=== PATIENT | female | born 1960 | race Caucasian/White ===

== ENCOUNTER 2016-03-25 11:05 | Emergency (ER) | payer OTHER ==
--- NOTE | 2016-03-25 11:51 | REP ---
CT Head without contrast HISTORY: Head injury COMPARISON: None There is no intraparenchymal hemorrhage, acute infarct, mass or midline shift. The ventricular system is normal in appearance. There is no extra cerebral collection. There is no fracture. The visualized sinuses are clear. Soft tissue swelling is present overlying the right parietal bone. IMPRESSION: There is no intracranial lesion. Signed by Leo Gordon MD 03/25/2016 11:43 A
--- NOTE | 2016-03-25 12:13 | REP ---
CT CERVICAL SPINE WITHOUT CONTRAST: HISTORY: Trauma. There is no acute fracture or subluxation. A disc bulge is present at the C3-4 level. Disc bulges with associated osteophyte formation are present at the C5-6 through C6-7 levels. There is minimal narrowing of the spinal canal. Uncinate process and/or facet hypertrophy are present at the C4-5 through C6-7 levels. These findings produce minimal to mild narrowing of the neural foramina. The C4-5 through C6-7 intervertebral discs are decreased in height consistent with disc degeneration. Anterior osteophytes are present at the C1-2 and C6-7 levels. IMPRESSION: 1. There is no acute fracture or subluxation. 2. There is cervical spondylosis at the C1-2 and C3-4 through C6-7 levels. Signed by Leo Gordon MD 03/25/2016 12:14 P
--- NOTE | 2016-03-25 12:40 | EDDOCDS ---
Physician Documentation [facility] Name: Toya Sheridan Age: 56 yrs Sex: Female : 1960 Arrival Date: 03/25/2016 Time: 11:05 Bed 4 Private MD: Angel Hernadez Disposition: 03/25 12:07 Critical Care: Critical care not applicable. pc Disposition: 03/25/16 12:12 Discharged to Home/Self Care. Impression: Strain of muscle, fascia and tendon at neck level - bilateral trapezius muscles. - Condition is Stable. - Discharge Instructions: Soft Tissue Injury of the Neck. - Prescriptions for Skelaxin 800 mg Oral Tablet - take 1 tablet by ORAL route every 6 hours As needed; 40 tablet. - Medication Reconciliation, Local Pharmacy Hours form. - Follow up: Angel Hernadez; When: As previously arranged; Reason: Recheck today's complaints, Continuance of care. - Problem is new. - Symptoms are unchanged. HPI: 12:07 This 56 yrs old Female presents to ER via Walkin/Carried/Asstd with pc complaints of Head Injury. 12:07 The history is obtained from the patient. She slipped on the ice yesterday and struck pc the back of her head. She denies any LOC. Her only complaint is that her "neck muscles hurt" today. She denies any focal neuro deficits. The patient has not experienced similar symptoms in the past. The patient has been recently seen by their primary care provider, for a routine, regularly scheduled appointment. Historical: - Allergies: no known allergies; - Home Meds: 1. Eliquis 5 mg oral tab 2 times per day (Last dose: 03/25/2016 07:00) 2. carvedilol 25 mg oral tab 1 tab 2 times per day (Last dose: 03/25/2016 07:00) 3. 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 - Social history: Smoking status: Patient states was never smoker of tobacco. No barriers to communication noted, The patient speaks fluent Chinese, Speaks appropriately for age. - : The pt / caregiver states he / she is on anticoagulants: Eliquis Home medication list is obtained from the patient. - Hospitalizations: : No recent hospitalization is reported. - Exposure Risk Screening:: None identified. - Immunization history:: All immunizations up-to-date. - Family history: Not pertinent. - Social history:: the patient is a non-smoker, the patient does not drink alcohol. ROS: 12:07 All systems are negative except as listed. pc Exam: 12:07 General Appearance: no acute distress, alert. pc 12:07 EENT: normal eye inspection, ears, nose and throat normal, pharynx normal, mucous membranes moist 12:07 Neck: The exam is negative for acute abnormalities except: pain in both trapezius muscles with mild spasm. 12:07 Respiratory: no respiratory distress, normal breath sounds. 12:07 CVS: regular pulse rate, regular rhythm, normal S1 and S2, no murmurs, strong peripheral pulses. 12:07 Abdomen: soft, non-tender, no organomegaly, normal bowel sounds. 12:07 Back: normal inspection. 12:07 Skin: skin color is normal. 12:07 Extremities: The extremities have a grossly normal appearance, are non-tender, without acute ROM abnormalities. 12:07 Neuro: oriented x 3, cranial nerves normal as tested, no motor deficits, no sensory deficits, normal gait. Vital Signs: 11:07 BP 144 / 72; Pulse 53; Resp 16; Temp 97.2(O); Pulse Ox 100% ; Weight 94.35 kg / 208.01 cmb lbs; Height 5 ft. 8 in. (172.72 cm); Pain 8/10; 12:25 BP 144 / 68; Pulse 56; Resp 18; Temp 97.3(O); Pulse Ox 98% on R/A; Pain 6/10; ct3 11:07 Body Mass Index 31.63 (94.35 kg, 172.72 cm) cmb Felix Coma Score: 11:09 Eye Response: spontaneous(4). Verbal Response: oriented(5). Motor Response: obeys srm commands(6). Total: 15. MDM: 11:24 CT Head Without Contrast Ordered. EDMS 11:24 CT Spine,Cervical W/o Contrast Ordered. EDMS 12:07 Differential Diagnosis: Head injury on thinners;; cervical strain. Plan: CTs. Data pc reviewed: old medical records, vital signs, nurses notes, all radiology studies and available results. Test interpretation: interpreted by Radiologist and personally reviewed, C-Spine CT; no acute disease, Head CT; no acute disease. The patient has been re-examined and re-evaluated. There is no appreciated change of the patient's symptoms at this time. Disposition: The historical points, examination findings, and any diagnostic results supporting the provided diagnosis, were discussed with the patient or legal guardian. The need for outpatient follow up with the provider listed on their discharge instructions was discussed. They were encouraged to return to [facility], or the nearest ED, if symptoms worsen/persist, or for any other questions/concerns. 12:35 Financial registration complete. mm15 Signatures: Dispatcher [employer] Shun Ordaz MD MD pc Michelson, Staci, RN RN srm McGrath, Marlynn mm15 Clemencia Adams RN RN ja5 CHRIS
--- NOTE | 2016-03-25 12:40 | EDDOCDS ---
Nurse's Notes [facility] Name: Toya Sheridan Age: 56 yrs Sex: Female : 1960 Arrival Date: 03/25/2016 Time: 11:05 Bed 4 Private MD: Angel Hernadez Diagnosis: Strain of muscle, fascia and tendon at neck level-bilateral trapezius muscles Presentation: 03/25 11:09 Presenting complaint: Patient states: was ice fishing yesterday- fell and hit back of [facility] [place]. pt is on blood thinners. c/o neck pain that radiates around neck and into arms. no LOC at time of fall. This patient has no additional risk factors. Mechanism of Injury: resulted from a fall. Adult Sepsis Screening: The patient does not have new or worsening altered mentation. Patient's respiratory rate is less than 22. Systolic blood pressure is greater than 100. Patient has a qSOFA score of 0- Negative Sepsis Screen. Suicide/Homicide risk assessment- the patient denies having any suicidal and/or homicidal ideations and does not present with any other emotional, behavioral or mental health complaints. Status: Patient is not a canine service teacher or dependent. Transition of care: patient was not received from another setting of care. 11:09 Acuity: MONICA Level 2 [facility] [place] 11:09 Method Of Arrival: Walkin/Carried/Asstd [facility] [place] T[place] Assessment: 11:14 General: Appears in no apparent distress, Behavior is appropriate for age, cooperative. srm Pain: Pain currently is 8 out of 10 on a pain scale. 11:15 Neurological: Level of Consciousness is awake, alert, Oriented to person, place, time, srm Machine Tool Builder are equal bilaterally Moves all extremities. Full function Gait is steady, Speech is normal, Facial symmetry appears normal, Reports neck pain. 12:39 Pt Declines HIV testing. ja5 Historical: - Allergies: no known allergies; - Home Meds: 1. Eliquis 5 mg oral tab 2 times per day (Last dose: 03/25/2016 07:00) 2. carvedilol 25 mg oral tab 1 tab 2 times per day (Last dose: 03/25/2016 07:00) 3. 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 - Social history: Smoking status: Patient states was never smoker of tobacco. No barriers to communication noted, The patient speaks fluent Afghan, Speaks appropriately for age. - : The pt / caregiver states he / she is on anticoagulants: Eliqu Home medication list is obtained from the patient. - Hospitalizations: : No recent hospitalization is reported. - Exposure Risk Screening:: None identified. - Immunization history:: All immunizations up-to-date. - Family history: Not pertinent. - Social history:: the patient is a non-smoker, the patient does not drink alcohol. Screenin:33 Screening information is obtained from the patient. Fall risk: No risks identified. ja5 Assistance ADL's: requires no assistance with activities of daily living. Abuse/DV Screen: The patient / caregiver reports he/she is: not in a situation that causes fear, pain or injury. Nutritional screening: No deficits noted. On no prescribed diet. Advance Directives: Currently, there is no health care proxy. There is no active DNR order. There is no living will. Advance Directives: There is no Power of Polytechnic Registrar. home support is adequate. Assessment: 11:20 General: Appears in no apparent distress, Behavior is appropriate for age, cooperative. ja5 Pain: Location: scalp, left trapezius, right trapezius, left scapular area and right scapular area Pain currently is 7 out of 10 on a pain scale. Pain began pain began at 04:30 03/25/16 after patient fell while ice fishing at 07:30 03/24/16. Aggravated by increased activity. Neurological: No deficits noted. Level of Consciousness is awake, alert, Oriented to person, place, time, Machine Tool Builder are equal bilaterally Moves all extremities. Gait is steady, Speech is normal, Facial symmetry appears normal, Pupils are PERRLA. Cardiovascular: Heart tones S1 S2. Respiratory: Airway is patent Breath sounds are clear. Derm: Skin is dry, Skin is pink, warm & dry. swelling to the back of head from impact. 12:34 General: C collar removed by physician. Patient reports that pain in unchanged since ja5 time of arrival. Patient a&o x3, skin is warm, dry and pink. Respirations easy and full, no distress noted at this time.. Vital Signs: 11:07 BP 144 / 72; Pulse 53; Resp 16; Temp 97.2(O); Pulse Ox 100% ; Weight 94.35 kg; Height 5 cmb ft. 8 in. (172.72 cm); Pain 8/10; 12:25 BP 144 / 68; Pulse 56; Resp 18; Temp 97.3(O); Pulse Ox 98% on R/A; Pain 6/10; ct3 11:07 Body Mass Index 31.63 (94.35 kg, 172.72 cm) cmb Vitals: 11:07 Log In Time: March 25, 2016 at 11:05. cmb Marana Coma Score: 11:09 Eye Response: spontaneous(4). Verbal Response: oriented(5). Motor Response: obeys srm commands(6). Total: 15. ED Course: 11:06 Patient visited by Ness Mccray. cmb 11:06 Angel Hernadez is Private Physician. cmb 11:06 Patient moved to Waiting cmb 11:08 RN notified that patient meets Red Flag criteria. cmb 11:09 Phoebe Mcmanus, RN is Primary Nurse. srm 11:09 Patient moved to 4 srm 11:10 The patient / caregiver is instructed regarding the plan of care and ED course. ja5 11:11 Triage Initiated srm 11:12 Shun Salas MD is Attending Physician. pc 11:15 Patient visited by Loretta Garcia, CESAR. srm 11:15 C-collar applied. jc4 11:23 Patient visited by Shun Salas MD. pc 11:[address] ja5 11:36 Patient moved to 4 jc4 12:12 Angel Hernadez is Referral Physician. pc 12:25 Patient visited by Tequila Sánchez PCA. ct3 12:30 CT Head Without Contrast Returned. EDMS 12:30 CT Spine,Cervical W/o Contrast Returned. EDMS 12:38 No IV's were initiated during this patient's visit. No procedures done that require ja5 assistance. Order Results: Radiology Order: CT Head Without Contrast Test: CT Head Without Contrast REASON FOR EXAMINATION: HI on thinners; CT Head without contrast; ; HISTORY: Head injury; ; COMPARISON: None; ; There is no intraparenchymal hemorrhage, acute infarct, mass or midline shift.; The ventricular system is normal in appearance. There is no extra cerebral; collection. There is no fracture. The visualized sinuses are clear. Soft tissue; swelling is present overlying the right parietal bone.; ; IMPRESSION: There is no intracranial lesion.; ; ; ; ; Signed by; Leo Gordon MD 03/25/2016 11:43 A; Radiology Order: CT Spine,Cervical W/o Contrast Test: CT Spine,Cervical W/o Contrast REASON FOR EXAMINATION: Trauma; CT CERVICAL SPINE WITHOUT CONTRAST:; ; HISTORY: Trauma.; ; There is no acute fracture or subluxation. A disc bulge is present at the C3-4; level. Disc bulges with associated osteophyte formation are present at the C5-6; through C6-7 levels. There is minimal narrowing of the spinal canal. Uncinate; process and/or facet hypertrophy are present at the C4-5 through C6-7 levels.; These findings produce minimal to mild narrowing of the neural foramina. The; C4-5 through C6-7 intervertebral discs are decreased in height consistent with; disc degeneration. Anterior osteophytes are present at the C1-2 and C6-7 levels.; ; ; IMPRESSION:; ; 1. There is no acute fracture or subluxation.; ; 2. There is cervical spondylosis at the C1-2 and C3-4 through C6-7 levels.; ; ; Signed by; Leo Gordon MD 03/25/2016 12:14 P; Outcome: 12:12 Discharge ordered by Provider. pc 12:38 Discharge Assessment: Patient awake, alert and oriented x 3. No cognitive and/or ja5 functional deficits noted. Patient verbalized understanding of disposition instructions. patient administered narcotics - no. The following High Risk Discharge criteria are identified: None. Discharged to home ambulatory. Condition: stable. Discharge instructions given to patient, Instructed on discharge instructions, follow up and referral plans. medication usage, no driving heavy equipment, no drinking with medication, Demonstrated understanding of instructions, medications, Pt was receptive of discharge instructions/ teaching. CT Study completed. Property :Personal belongings accompany Pt. 12:39 Patient left the ED. ja5 Signatures: Dispatcher [employer] EDMS Shun Salas MD MD Loretta Garcia RN RN srm Castle, Jennifer, RN RN jc4 Tequila Sánchez, RECREATION PROGRAM SPECIALIST RECREATION PROGRAM SPECIALIST ct3 Ness Mccray JessicaRN RN ja5 Corrections: (The following items were deleted from the chart) 11:20 Neurological: No deficits noted. Level of Consciousness is awake, alert, Oriented jair to person, place, time, jair 11: Musculoskeletal: jair adam 11:20 Injury Description: pt fell Injury Description: pt fell jair adam MTDD
--- NOTE | 2016-03-27 13:40 | EDDOCDS ---
Physician Documentation [facility] Name: Toya Sheridan Age: 56 yrs Sex: Female : 1960 Arrival Date: 03/25/2016 Time: 11:05 Bed 4 Private MD: Angel Hernadez Disposition: 03/25 12:07 Critical Care: Critical care not applicable. pc Disposition: 03/25/16 12:12 Discharged to Home/Self Care. Impression: Strain of muscle, fascia and tendon at neck level - bilateral trapezius muscles. - Condition is Stable. - Discharge Instructions: Soft Tissue Injury of the Neck. - Prescriptions for Skelaxin 800 mg Oral Tablet - take 1 tablet by ORAL route every 6 hours As needed; 40 tablet. - Medication Reconciliation, Local Pharmacy Hours form. - Follow up: Angel Hernadez; When: As previously arranged; Reason: Recheck today's complaints, Continuance of care. - Problem is new. - Symptoms are unchanged. HPI: 12:07 This 56 yrs old Female presents to ER via Walkin/Carried/Asstd with pc complaints of Head Injury. 12:07 The history is obtained from the patient. She slipped on the ice yesterday and struck pc the back of her head. She denies any LOC. Her only complaint is that her "neck muscles hurt" today. She denies any focal neuro deficits. The patient has not experienced similar symptoms in the past. The patient has been recently seen by their primary care provider, for a routine, regularly scheduled appointment. Historical: - Allergies: no known allergies; - Home Meds: 1. Eliquis 5 mg oral tab 2 times per day (Last dose: 03/25/2016 07:00) 2. carvedilol 25 mg oral tab 1 tab 2 times per day (Last dose: 03/25/2016 07:00) 3. 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 - Social history: Smoking status: Patient states was never smoker of tobacco. No barriers to communication noted, The patient speaks fluent Spanish, Speaks appropriately for age. - : The pt / caregiver states he / she is on anticoagulants: Eliquis Home medication list is obtained from the patient. - Hospitalizations: : No recent hospitalization is reported. - Exposure Risk Screening:: None identified. - Immunization history:: All immunizations up-to-date. - Family history: Not pertinent. - Social history:: the patient is a non-smoker, the patient does not drink alcohol. ROS: 12:07 All systems are negative except as listed. pc Exam: 12:07 General Appearance: no acute distress, alert. pc 12:07 EENT: normal eye inspection, ears, nose and throat normal, pharynx normal, mucous membranes moist 12:07 Neck: The exam is negative for acute abnormalities except: pain in both trapezius muscles with mild spasm. 12:07 Respiratory: no respiratory distress, normal breath sounds. 12:07 CVS: regular pulse rate, regular rhythm, normal S1 and S2, no murmurs, strong peripheral pulses. 12:07 Abdomen: soft, non-tender, no organomegaly, normal bowel sounds. 12:07 Back: normal inspection. 12:07 Skin: skin color is normal. 12:07 Extremities: The extremities have a grossly normal appearance, are non-tender, without acute ROM abnormalities. 12:07 Neuro: oriented x 3, cranial nerves normal as tested, no motor deficits, no sensory deficits, normal gait. Vital Signs: 11:07 BP 144 / 72; Pulse 53; Resp 16; Temp 97.2(O); Pulse Ox 100% ; Weight 94.35 kg / 208.01 cmb lbs; Height 5 ft. 8 in. (172.72 cm); Pain 8/10; 12:25 BP 144 / 68; Pulse 56; Resp 18; Temp 97.3(O); Pulse Ox 98% on R/A; Pain 6/10; ct3 11:07 Body Mass Index 31.63 (94.35 kg, 172.72 cm) cmb Felix Coma Score: 11:09 Eye Response: spontaneous(4). Verbal Response: oriented(5). Motor Response: obeys srm commands(6). Total: 15. MDM: 11:24 CT Head Without Contrast Ordered. EDMS 11:24 CT Spine,Cervical W/o Contrast Ordered. EDMS 12:07 Differential Diagnosis: Head injury on thinners;; cervical strain. Plan: CTs. Data pc reviewed: old medical records, vital signs, nurses notes, all radiology studies and available results. Test interpretation: interpreted by Radiologist and personally reviewed, C-Spine CT; no acute disease, Head CT; no acute disease. The patient has been re-examined and re-evaluated. There is no appreciated change of the patient's symptoms at this time. Disposition: The historical points, examination findings, and any diagnostic results supporting the provided diagnosis, were discussed with the patient or legal guardian. The need for outpatient follow up with the provider listed on their discharge instructions was discussed. They were encouraged to return to [facility], or the nearest ED, if symptoms worsen/persist, or for any other questions/concerns. 12:35 Financial registration complete. mm15 12:53 [facility] Payment Agreement was scanned into [employer] and attached to record. mm15 Signatures: Dispatcher [employer] EDShun Salinas MD MD pc Michelson, Staci, RN RN [facility] Jayshree Reddy mm15 Clemencia Adams RN RN ja5 The chart was reviewed and I authenticate all verbal orders and agree with the evaluation and treatment provided.Attachments: 12:53 [facility] Payment Agreement mm15 Chart Complete MTDD
--- NOTE | 2016-03-27 13:40 | EDDOCDS ---
Nurse's Notes [facility] Name: Toya Sheridan Age: 56 yrs Sex: Female : 1960 Arrival Date: 03/25/2016 Time: 11:05 Bed 4 Private MD: Angel Hernadez Diagnosis: Strain of muscle, fascia and tendon at neck level-bilateral trapezius muscles Presentation: 03/25 11:09 Presenting complaint: Patient states: was ice fishing yesterday- fell and hit back of [facility] head. pt is on blood thinners. c/o neck pain that radiates around neck and into arms. no LOC at time of fall. This patient has no additional risk factors. Mechanism of Injury: resulted from a fall. Adult Sepsis Screening: The patient does not have new or worsening altered mentation. Patient's respiratory rate is less than 22. Systolic blood pressure is greater than 100. Patient has a qSOFA score of 0- Negative Sepsis Screen. Suicide/Homicide risk assessment- the patient denies having any suicidal and/or homicidal ideations and does not present with any other emotional, behavioral or mental health complaints. Status: Patient is not a electrical appliance servicer or dependent. Transition of care: patient was not received from another setting of care. 11:09 Acuity: MONICA Level 2 [facility] 11:09 Method Of Arrival: Walkin/Carried/Asstd [facility] Triage Assessment: 11:14 General: Appears in no apparent distress, Behavior is appropriate for age, cooperative. srm Pain: Pain currently is 8 out of 10 on a pain scale. 11:15 Neurological: Level of Consciousness is awake, alert, Oriented to person, place, time, srm Reconstructive Surgeon are equal bilaterally Moves all extremities. Full function Gait is steady, Speech is normal, Facial symmetry appears normal, Reports neck pain. 12:39 Pt Declines HIV testing. ja5 Historical: - Allergies: no known allergies; - Home Meds: 1. Eliquis 5 mg oral tab 2 times per day (Last dose: 03/25/2016 07:00) 2. carvedilol 25 mg oral tab 1 tab 2 times per day (Last dose: 03/25/2016 07:00) 3. 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 - Social history: Smoking status: Patient states was never smoker of tobacco. No barriers to communication noted, The patient speaks fluent Italian, Speaks appropriately for age. - : The pt / caregiver states he / she is on anticoagulants: Eliqu Home medication list is obtained from the patient. - Hospitalizations: : No recent hospitalization is reported. - Exposure Risk Screening:: None identified. - Immunization history:: All immunizations up-to-date. - Family history: Not pertinent. - Social history:: the patient is a non-smoker, the patient does not drink alcohol. Screenin:33 Screening information is obtained from the patient. Fall risk: No risks identified. ja5 Assistance ADL's: requires no assistance with activities of daily living. Abuse/DV Screen: The patient / caregiver reports he/she is: not in a situation that causes fear, pain or injury. Nutritional screening: No deficits noted. On no prescribed diet. Advance Directives: Currently, there is no health care proxy. There is no active DNR order. There is no living will. Advance Directives: There is no Power of Chemical Strength Tester. home support is adequate. Assessment: 11:20 General: Appears in no apparent distress, Behavior is appropriate for age, cooperative. ja5 Pain: Location: scalp, left trapezius, right trapezius, left scapular area and right scapular area Pain currently is 7 out of 10 on a pain scale. Pain began pain began at 04:30 03/25/16 after patient fell while ice fishing at 07:30 03/24/16. Aggravated by increased activity. Neurological: No deficits noted. Level of Consciousness is awake, alert, Oriented to person, place, time, Reconstructive Surgeon are equal bilaterally Moves all extremities. Gait is steady, Speech is normal, Facial symmetry appears normal, Pupils are PERRLA. Cardiovascular: Heart tones S1 S2. Respiratory: Airway is patent Breath sounds are clear. Derm: Skin is dry, Skin is pink, warm & dry. swelling to the back of head from impact. 12:34 General: C collar removed by physician. Patient reports that pain in unchanged since ja5 time of arrival. Patient a&o x3, skin is warm, dry and pink. Respirations easy and full, no distress noted at this time.. Vital Signs: 11:07 BP 144 / 72; Pulse 53; Resp 16; Temp 97.2(O); Pulse Ox 100% ; Weight 94.35 kg; Height 5 cmb ft. 8 in. (172.72 cm); Pain 8/10; 12:25 BP 144 / 68; Pulse 56; Resp 18; Temp 97.3(O); Pulse Ox 98% on R/A; Pain 6/10; ct3 11:07 Body Mass Index 31.63 (94.35 kg, 172.72 cm) cmb Vitals: 11:07 Log In Time: March 25, 2016 at 11:05. cmb [place] Coma Score: 11:09 Eye Response: spontaneous(4). Verbal Response: oriented(5). Motor Response: obeys srm commands(6). Total: 15. ED Course: 11:06 Patient visited by Ness Mccray. cmb 11:06 Angel Hernadez is Private Physician. cmb 11:06 Patient moved to Waiting cmb 11:08 RN notified that patient meets Red Flag criteria. cmb 11:09 Phoebe Mcmanus, RN is Primary Nurse. srm 11:09 Patient moved to 4 srm 11:10 The patient / caregiver is instructed regarding the plan of care and ED course. ja5 11:11 Triage Initiated srm 11:12 Shun Salas MD is Attending Physician. pc 11:15 Patient visited by Loretta Garcia, CESAR. srm 11:15 C-collar applied. jc4 11:23 Patient visited by Shun Salas MD. pc 11:[address] ja5 11:36 Patient moved to 4 jc4 12:12 Angel Hernadez is Referral Physician. pc 12:25 Patient visited by Tequila Sánchez PCA. ct3 12:30 CT Head Without Contrast Returned. EDMS 12:30 CT Spine,Cervical W/o Contrast Returned. EDMS 12:38 No IV's were initiated during this patient's visit. No procedures done that require ja5 assistance. 12:53 [facility] [place] was scanned into [employer] and attached to record. mm15 14:14 Patient name changed from Toya\S\M\S\Foster\S\ to Toya\S\Kylie\S\Arvin. EDMS Order Results: Radiology Order: CT Head Without Contrast Test: CT Head Without Contrast REASON FOR EXAMINATION: HI on thinners; CT Head without contrast; ; HISTORY: Head injury; ; COMPARISON: None; ; There is no intraparenchymal hemorrhage, acute infarct, mass or midline shift.; The ventricular system is normal in appearance. There is no extra cerebral; collection. There is no fracture. The visualized sinuses are clear. Soft tissue; swelling is present overlying the right parietal bone.; ; IMPRESSION: There is no intracranial lesion.; ; ; ; ; Signed by; Leo Gordon MD 03/25/2016 11:43 A; Radiology Order: CT Spine,Cervical W/o Contrast Test: CT Spine,Cervical W/o Contrast REASON FOR EXAMINATION: Trauma; CT CERVICAL SPINE WITHOUT CONTRAST:; ; HISTORY: Trauma.; ; There is no acute fracture or subluxation. A disc bulge is present at the C3-4; level. Disc bulges with associated osteophyte formation are present at the C5-6; through C6-7 levels. There is minimal narrowing of the spinal canal. Uncinate; process and/or facet hypertrophy are present at the C4-5 through C6-7 levels.; These findings produce minimal to mild narrowing of the neural foramina. The; C4-5 through C6-7 intervertebral discs are decreased in height consistent with; disc degeneration. Anterior osteophytes are present at the C1-2 and C6-7 levels.; ; ; IMPRESSION:; ; 1. There is no acute fracture or subluxation.; ; 2. There is cervical spondylosis at the C1-2 and C3-4 through C6-7 levels.; ; ; Signed by; Leo Gordon MD 03/25/2016 12:14 P; Outcome: 12:12 Discharge ordered by Provider. pc 12:38 Discharge Assessment: Patient awake, alert and oriented x 3. No cognitive and/or ja5 functional deficits noted. Patient verbalized understanding of disposition instructions. patient administered narcotics - no. The following High Risk Discharge criteria are identified: None. Discharged to home ambulatory. Condition: stable. Discharge instructions given to patient, Instructed on discharge instructions, follow up and referral plans. medication usage, no driving heavy equipment, no drinking with medication, Demonstrated understanding of instructions, medications, Pt was receptive of discharge instructions/ teaching. CT Study completed. Property :Personal belongings accompany Pt. 12:39 Patient left the ED. [facility] Signatures: Dispatcher [employer] EDShun Salinas MD MD pc Michelson, Staci, RN RN Phoebe Ramsey RN RN jc4 Tequila Sánchez, GERONTOLOGICAL NURSE PRACTITIONER GERONTOLOGICAL NURSE PRACTITIONER ct3 Ness Mccray Marlynn mm15 Clemencia AdamsRN RN [email or web address] Corrections: (The following items were deleted from the chart) 11:20 Neurological: No deficits noted. Level of Consciousness is awake, alert, Oriented [facility] to person, place, time, [facility] 11:20 Musculoskeletal: [place] [id number] 11:20 Injury Description: pt fell Injury Description: pt fell [facility] michael Chart Complete MTDD
--- NOTE | 2016-03-27 13:40 | EDDOCDS ---
Physician Documentation [facility] Name: Toya Sheridan Age: 56 yrs Sex: Female : 1960 Arrival Date: 03/25/2016 Time: 11:05 Bed 4 Private MD: Angel Hernadez Disposition: 03/25 12:07 Critical Care: Critical care not applicable. pc Disposition: 03/25/16 12:12 Discharged to Home/Self Care. Impression: Strain of muscle, fascia and tendon at neck level - bilateral trapezius muscles. - Condition is Stable. - Discharge Instructions: Soft Tissue Injury of the Neck. - Prescriptions for Skelaxin 800 mg Oral Tablet - take 1 tablet by ORAL route every 6 hours As needed; 40 tablet. - Medication Reconciliation, Local Pharmacy Hours form. - Follow up: Angel Hernadez; When: As previously arranged; Reason: Recheck today's complaints, Continuance of care. - Problem is new. - Symptoms are unchanged. HPI: 12:07 This 56 yrs old Female presents to ER via Walkin/Carried/Asstd with pc complaints of Head Injury. 12:07 The history is obtained from the patient. She slipped on the ice yesterday and struck pc the back of her head. She denies any LOC. Her only complaint is that her "neck muscles hurt" today. She denies any focal neuro deficits. The patient has not experienced similar symptoms in the past. The patient has been recently seen by their primary care provider, for a routine, regularly scheduled appointment. Historical: - Allergies: no known allergies; - Home Meds: 1. Eliquis 5 mg oral tab 2 times per day (Last dose: 03/25/2016 07:00) 2. carvedilol 25 mg oral tab 1 tab 2 times per day (Last dose: 03/25/2016 07:00) 3. 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 - Social history: Smoking status: Patient states was never smoker of tobacco. No barriers to communication noted, The patient speaks fluent Greenlandic, Speaks appropriately for age. - : The pt / caregiver states he / she is on anticoagulants: Eliquis Home medication list is obtained from the patient. - Hospitalizations: : No recent hospitalization is reported. - Exposure Risk Screening:: None identified. - Immunization history:: All immunizations up-to-date. - Family history: Not pertinent. - Social history:: the patient is a non-smoker, the patient does not drink alcohol. ROS: 12:07 All systems are negative except as listed. pc Exam: 12:07 General Appearance: no acute distress, alert. pc 12:07 EENT: normal eye inspection, ears, nose and throat normal, pharynx normal, mucous membranes moist 12:07 Neck: The exam is negative for acute abnormalities except: pain in both trapezius muscles with mild spasm. 12:07 Respiratory: no respiratory distress, normal breath sounds. 12:07 CVS: regular pulse rate, regular rhythm, normal S1 and S2, no murmurs, strong peripheral pulses. 12:07 Abdomen: soft, non-tender, no organomegaly, normal bowel sounds. 12:07 Back: normal inspection. 12:07 Skin: skin color is normal. 12:07 Extremities: The extremities have a grossly normal appearance, are non-tender, without acute ROM abnormalities. 12:07 Neuro: oriented x 3, cranial nerves normal as tested, no motor deficits, no sensory deficits, normal gait. Vital Signs: 11:07 BP 144 / 72; Pulse 53; Resp 16; Temp 97.2(O); Pulse Ox 100% ; Weight 94.35 kg / 208.01 cmb lbs; Height 5 ft. 8 in. (172.72 cm); Pain 8/10; 12:25 BP 144 / 68; Pulse 56; Resp 18; Temp 97.3(O); Pulse Ox 98% on R/A; Pain 6/10; ct3 11:07 Body Mass Index 31.63 (94.35 kg, 172.72 cm) cmb [place] Coma Score: 11:09 Eye Response: spontaneous(4). Verbal Response: oriented(5). Motor Response: obeys srm commands(6). Total: 15. MDM: 11:24 CT Head Without Contrast Ordered. EDMS 11:24 CT Spine,Cervical W/o Contrast Ordered. EDMS 12:07 Differential Diagnosis: Head injury on thinners;; cervical strain. Plan: CTs. Data pc reviewed: old medical records, vital signs, nurses notes, all radiology studies and available results. Test interpretation: interpreted by Radiologist and personally reviewed, C-Spine CT; no acute disease, Head CT; no acute disease. The patient has been re-examined and re-evaluated. There is no appreciated change of the patient's symptoms at this time. Disposition: The historical points, examination findings, and any diagnostic results supporting the provided diagnosis, were discussed with the patient or legal guardian. The need for outpatient follow up with the provider listed on their discharge instructions was discussed. They were encouraged to return to [facility], or the nearest ED, if symptoms worsen/persist, or for any other questions/concerns. 12:35 Financial registration complete. mm15 12:53 [facility] Payment Agreement was scanned into [employer] and attached to record. mm15 Signatures: Dispatcher [employer] EDShun Salinas MD MD pc Michelson, Staci, RN RN [facility] Jayshree Reddy mm15 Clemencia Adams RN RN ja5 The chart was reviewed and I authenticate all verbal orders and agree with the evaluation and treatment provided.Attachments: 12:53 [facility] Payment Agreement mm15 Chart Complete MTDD
== END 2016-03-25 12:39 | disposition home or self-care (01) ==
LOC: M ED 11:05
DX: S16.1XXA Strain of muscle, fascia and tendon at neck level, initial encounter (principal); W00.0XXA Fall on same level due to ice and snow, initial encounter; Y92.89 Other specified places as the place of occurrence of the external cause; Y93.89 Activity, other specified; Y99.8 Other external cause status; I48.91 Unspecified atrial fibrillation; Z79.899 Other long term (current) drug therapy; Z79.01 Long term (current) use of anticoagulants

== ENCOUNTER 2018-08-24 05:36 | Emergency (ER) | payer OTHER ==
[~2018-08-24] VITALS: Ht 167.6 cm; Wt 84.1 kg
[2018-08-24] MEDS ORDERED: FLEC50HA PO (05:56)
[2018-08-24] MEDS ORDERED: CARV25TA PO (05:56)
[2018-08-24] MEDS ORDERED: ELIQ5TAB PO (05:56)
[2018-08-24] MEDS ORDERED: ONDANSETRON 4MG/2ML VIAL (J2405) IV ONE (06:15)
--- NOTE | 2018-08-24 06:20 | REPVR ---
EXAM: CT Head Without Contrast EXAM DATE/TIME: 08/24/2018 5:51 AM CLINICAL HISTORY: 58 years old, female; Injury or trauma; Fall; Initial encounter; Concussion / head injury; Consciousness not specified; Additional info: Headache TECHNIQUE: Imaging protocol: Axial computed tomography images of the head without contrast. Radiation optimization: All CT scans at this facility use at least one of these dose optimization techniques: automated exposure control; mA and/or kV adjustment per patient size (includes targeted exams where dose is matched to clinical indication); or iterative reconstruction. COMPARISON: CT Head without contrast 03/25/2016 11:31 AM FINDINGS: Brain: There is a heterogeneous hyperdense left extra-axial collection, most consistent with an acute subdural hemorrhage, measuring 13 mm in depth. This extends along the left frontal, temporal, and anterior parietal regions. There is associated mass effect with left-sided sulcal effacement. The cortical/white matter interfaces are preserved throughout the brain. No intraparenchymal hemorrhage is identified. Midline shift: There is a left to right midline shift measuring 7 mm. Ventricles: There is mass effect upon the left lateral ventricle with distortion and mild narrowing of the left lateral ventricle and effacement of the left temporal horn. Bones/joints: No acute fractures of the skull are identified. Sinuses: The visualized paranasal sinuses are clear. Mastoid air cells: The mastoid air cells are clear. Soft tissues: Unremarkable. IMPRESSION: Hyperdense left subdural collection consistent with an acute subdural hemorrhage with associated mass effect, resulting in a 7 mm left to right midline shift. THIS REPORT CONTAINS FINDINGS THAT MAY BE CRITICAL TO PATIENT CARE. The findings were verbally communicated via telephone conference with HAYLEY LEBLANC at 6:18 AM EDT on 08/24/2018. The findings were acknowledged and understood. Electronically signed by: Phoebe Velazquez On 08/24/2018 06:19:50 AM
[2018-08-24] MEDS: MORPHINE 4 MG/ML 1ML VIAL/SYRINGE (J2270) IV PRN ×2 (06:29→07:24)
[2018-08-24 06:32] LABS: BASO % 0.6 % (0.0-1.0); EOS # 0.1 10^3/uL (0.0-0.50); EOS % 1.1 % (0.0-3.0); HEMATOCRIT 41.4 % (36.0-47.0); HEMOGLOBIN 14.2 g/dl (12.0-15.5); LYMPH % 15.4 % (24.0-44.0); MEAN CORPUSCULAR HEMOGLOBIN 31.7 pg (27.0-33.0); MEAN CORPUSCULAR HGB CONC 34.3 g/dl (32.0-36.5); MEAN CORPUSCULAR VOLUME 92.4 fl (80.0-96.0); MONO # 0.5 10^3/uL (0.0-0.8); MONO % 7.4 % (0.0-5.0); NEUTROPHILS # 4.8 10^3/uL (1.8-7.7); PLATELET COUNT, AUTOMATED 158 10^3/uL (150-450); RED BLOOD COUNT 4.48 10^6/uL (4.00-5.40); WHITE BLOOD COUNT 6.4 10^3/uL (4.0-10.0)
[2018-08-24 06:42] LABS: INR 1.27; PROTHROMBIN TIME 16.1 SECONDS (12.1-14.4)
[2018-08-24 06:43] LABS: PARTIAL THROMBOPLASTIN TIME 32.7 SECONDS (25.4-37.6)
--- NOTE | 2018-08-24 06:56 | REPVR ---
EXAM: CT Cervical Spine Without Contrast EXAM DATE/TIME: 08/24/2018 6:15 AM CLINICAL HISTORY: 58 years old, female; Injury or trauma; Fall; Initial encounter; Concussion /head injury TECHNIQUE: Imaging protocol: Axial computed tomography images of the cervical spine without contrast. Coronal and sagittal reformatted images were created and reviewed. Radiation optimization: All CT scans at this facility use at least one of these dose optimization techniques: automated exposure control; mA and/or kV adjustment per patient size (includes targeted exams where dose is matched to clinical indication); or iterative reconstruction. COMPARISON: CT Spine,cervical w/o contrast 03/25/2016 11:31 AM FINDINGS: Vertebrae: There is straightening of the cervical lordosis without subluxations, similar to the prior exam. No fractures are identified. Degenerative endplate changes are seen at C4-C5 through C6-C7. Discs/Spinal canal/Neural foramina: There is a small bulge of the C3-4 disc, without significant change. There is mild disc space narrowing at C4-C5, C5-C6, and C6-C7. There is mild central canal stenosis at C4-C5 and bilateral neural foraminal narrowing, left worse than right. Mild central canal stenosis and bilateral neural foraminal narrowing, left greater than right, are present at C5-C6. There is mild central canal stenosis at C6-C7. Prevertebral Space: The prevertebral soft tissues appear normal. Soft tissues: The paraspinous soft tissues appear unremarkable. Lungs: The visualized lungs are grossly clear. IMPRESSION: 1. Straightening of the cervical lordosis no subluxations or fractures identified. 2. Degenerative disc disease from C4-C5 through C6-C7, without significant change. Electronically signed by: Phoebe Velazquez On 08/24/2018 06:55:41 AM
[2018-08-24] MEDS ORDERED: PROTHROMBIN COMPLEX CONCEN IV ONE ×2 (07:00→07:01)
[2018-08-24] MEDS ORDERED: DILUENT IV ONE ×2 (07:00→07:01)
[2018-08-24 07:01] LABS: BLOOD UREA NITROGEN 13 MG/DL (7-18); CALCIUM LEVEL 8.9 MG/DL (8.5-10.1); CARBON DIOXIDE LEVEL 27 MEQ/L (21-32); CHLORIDE LEVEL 110 MEQ/L (98-107); CREATININE FOR GFR 0.79 MG/DL (0.55-1.30); GLOMERULAR FILTRATION RATE > 60.0 (>51); GLUCOSE, FASTING 132 MG/DL (70-100); SODIUM LEVEL 144 MEQ/L (136-145)
--- NOTE | 2018-08-24 07:02 | REPVR ---
EXAM: CT Maxillofacial Without Contrast EXAM DATE/TIME: 08/24/2018 6:15 AM CLINICAL HISTORY: 58 years old, female; Injury or trauma; Fall; Initial encounter; Concussion /head injury; Loss of consciousness not known TECHNIQUE: Imaging protocol: Axial computed tomography images of the face without intravenous contrast. Coronal and sagittal reformatted images were created and reviewed. Radiation optimization: All CT scans at this facility use at least one of these dose optimization techniques: automated exposure control; mA and/or kV adjustment per patient size (includes targeted exams where dose is matched to clinical indication); or iterative reconstruction. COMPARISON: No relevant prior studies available. FINDINGS: Orbits: The globes are intact bilaterally. The intraconal fat and extraocular muscles appear normal bilaterally. The orbital rims are intact. Sinuses: The sinuses are clear. Bones/joints: There is no evidence of acute fracture. Soft tissues: There is a focus of air within the subcutaneous tissues in the mandibular region on the left side of face. There is mild skin thickening and stranding in the subcutaneous tissues from the left mandibular through the left submandibular regionand thickening of the left platysma muscle. IMPRESSION: Soft tissue swelling on the left side of the face with a focus of air in the subcutaneous tissues in this region, presumably related to a laceration and soft tissue contusion/hematoma, given the history of trauma. Electronically signed by: Phoebe Velazquez On 08/24/2018 07:02:00 AM
[2018-08-24] MEDS ORDERED: METOCLOPRAMIDE INJ 10MG/2ML VIAL (J2765) IV ONE (07:30)
[2018-08-24] MEDS ORDERED: HYDROMORPHONE HCL 0.5 MG/ 0.5 ML SYRINGE (J1170 PER 1) As Ordered ONE (08:08)
[2018-08-24] MEDS ORDERED: HYDROMORPHONE HCL 0.5 MG/ 0.5 ML SYRINGE (J1170 PER 1) IV PRN (08:15)
[2018-08-24 08:30] VITALS: BP 152/65
== END 2018-08-24 08:31 | disposition short-term general hospital (02) ==
LOC: M ED 05:36
DX: S06.5X9A Traumatic subdural hemorrhage with loss of consciousness of unspecified duration, initial encounter (principal); X58.XXXA Exposure to other specified factors, initial encounter; Y92.099 Unspecified place in other non-institutional residence as the place of occurrence of the external cause; Y93.9 Activity, unspecified; Y99.9 Unspecified external cause status; I48.91 Unspecified atrial fibrillation; M50.321 Other cervical disc degeneration at C4-C5 level; M50.322 Other cervical disc degeneration at C5-C6 level; M50.323 Other cervical disc degeneration at C6-C7 level; Z79.01 Long term (current) use of anticoagulants; Z79.899 Other long term (current) drug therapy
CPT/HCPCS: 70450; 70486; 72125; 80048; 85025; 85610; 85730; 86850; 86900; 86901; 93041; 96374; 96375; 96376; 99291; C9132; J1170; J2270; J2405; J2765

== ENCOUNTER 2019-06-10 13:27 | Emergency (ER) | payer OTHER ==
[~2019-06-10] VITALS: Ht 167.6 cm; Wt 84.1 kg
[~2019-06-10 13:27] MED LIST: CARV25TA PO; ELIQ5TAB PO; FLEC50HA PO
[2019-06-10] MEDS ORDERED: DRON40TA PO (13:35)
[2019-06-10] MEDS ORDERED: ASPI-262 PO (13:35)
[2019-06-10] MEDS ORDERED: CLOP75TA2 PO (13:35)
--- NOTE | 2019-06-10 14:24 | REP ---
A CT BRAIN WITHOUT CONTRAST: HISTORY: Trauma, patient on anticoagulant. Comparison head CT study August 24, 2018 and March 25, 2016. FINDINGS: In the interval since the August 24, 2018 prior exam, the patient has undergone a large left temporoparietal craniotomy with craniectomy prosthesis. The previously noted subdural hematoma is resolved. There is no new intracranial hemorrhage or extra-axial fluid collection. Lateral, third, fourth ventricles are normal in size and position. The visualized paranasal sinuses are clear. No skull fractures seen. No intraorbital abnormality is noted. No significant scalp hematoma. IMPRESSION: Status post left temporoparietal craniectomy and calvarial prosthesis placement. No acute intracranial abnormality. Electronically Signed by Vikas Patel MD 06/10/2019 02:32 P
[2019-06-10 14:35] VITALS: BP 133/69
== END 2019-06-10 14:47 | disposition home or self-care (01) ==
LOC: M ED 13:27
DX: S09.90XA Unspecified injury of head, initial encounter (principal); S40.021A Contusion of right upper arm, initial encounter; S20.211A Contusion of right front wall of thorax, initial encounter; W01.198A Fall on same level from slipping, tripping and stumbling with subsequent striking against other object, initial encounter; Y92.89 Other specified places as the place of occurrence of the external cause; I10 Essential (primary) hypertension; Z88.8 Allergy status to other drugs, medicaments and biological substances; Z79.82 Long term (current) use of aspirin; Z79.01 Long term (current) use of anticoagulants

== ENCOUNTER → 2023-06-19 | Outpatient (CLI) | payer OTHER ==
[~2023-06-19] MED LIST changes: +ASPI325T59 PO; +CLOP75TA2 PO; +DRON400T PO
== END ==
LOC: M WHC 07:32
PROVIDERS: ATTEND Nurse Practitioner Family
DX: Z12.31 Encounter for screening mammogram for malignant neoplasm of breast (principal)

== ENCOUNTER 2024-10-11 20:17 | Emergency (ER) | payer MEDICARE, OTHER ==
[~2024-10-11] VITALS: Ht 170.2 cm; Wt 98.9 kg
[2024-10-11] MEDS ORDERED: ISOVUE-370 76% 100 ML VIAL As Ordered ONE (21:17)
[2024-10-11 21:22] LABS: BASO # 0.1 10^3/uL (0.0-0.2); BASO % 1.1 % (0.0-1.0); EOS # 0.1 10^3/uL (0.0-0.5); EOS % 2.5 % (0.0-3.0); LYMPH # 1.7 10^3/uL (1.5-5.0); LYMPH % 31.1 % (24.0-44.0); MONO # 0.4 10^3/uL (0.0-0.8); MONO % 8.0 % (2.0-8.0); NEUTROPHILS # 3.1 10^3/uL (1.5-8.5); NEUTROPHILS % 57.1 % (36.0-66.0); PLATELET COUNT, AUTOMATED 215 10^3/uL (150-450)
[2024-10-11 21:36] LABS: CALCIUM LEVEL 8.9 MG/DL (8.3-10.6); CARBON DIOXIDE LEVEL 26.0 MMOL/L (20-31); CHLORIDE LEVEL 109.0 MMOL/L (98-107); CREATININE FOR GFR 1.07 MG/DL (0.55-1.30); GLOMERULAR FILTRATION RATE 57.6 (>45); POTASSIUM SERUM 4.5 MMOL/L (3.5-5.1); SODIUM LEVEL 146.0 MMOL/L (136-145)
[2024-10-11 23:00] VITALS: BP 155/77; TEMP 98.2; O2SAT 97
[2024-10-11] MEDS ORDERED: AMOX875T2 PO (23:08)
[2024-10-11] MEDS ORDERED: FLUC150T9 PO (23:08)
[2024-10-11] MEDS: AUGMENTIN 875 MG TAB PO ONE (23:38)
== END 2024-10-11 23:52 | disposition home or self-care (01) ==
LOC: M ED 20:17
DX: K11.20 Sialoadenitis, unspecified (principal); E78.5 Hyperlipidemia, unspecified; I10 Essential (primary) hypertension; Z88.8 Allergy status to other drugs, medicaments and biological substances; Z79.1 Long term (current) use of non-steroidal anti-inflammatories (NSAID); Z79.2 Long term (current) use of antibiotics; Z79.899 Other long term (current) drug therapy
CPT/HCPCS: 36415; 70487; 70498; 80047; 80048; 85025; 93041; 94760; 99284; Q9967